=== PATIENT | male | born 1970 | race Hispanic/Latino ===

== ENCOUNTER 2016-12-25 15:53 | Day surgery (SDC) | payer OTHER ==
[~2016-12-25] VITALS: Ht 160 cm; Wt 83.0 kg
[~2016-12-25 15:53] MED LIST: AMOXICILLIN500 MG PO; BACTRIM DS1 TAB PO; CIPROFLOXACN500 MG PO; FISH OIL1200 M1 PO; METRONIDAZOL500 MG PO; MULTI VIT PO; OMEPRAZOLE10 MG PO; OMEPRAZOLE20 M1 PO; PRILOSEC40 MG PO
[2016-12-25 17:11] VITALS: BP 109/65
== END 2016-12-25 17:23 | disposition home or self-care (01) | DRG 392 ==
LOC: ENDO 15:53 → ORM 19:00 → ENDO 19:15
PROVIDERS: ATTEND Internal Medicine Gastroenterology
PROC: 0DB48ZX Excision of Esophagogastric Junction, Via Natural or Artificial Opening Endoscopic, Diagnostic (ICD-10-PCS; principal; 2016-12-25)
PROC: 0DB68ZX Excision of Stomach, Via Natural or Artificial Opening Endoscopic, Diagnostic (ICD-10-PCS; 2016-12-25)
DX: K21.9 Gastro-esophageal reflux disease without esophagitis (principal); K62.5 Hemorrhage of anus and rectum; R10.13 Epigastric pain; R10.12 Left upper quadrant pain; R14.0 Abdominal distension (gaseous); K29.50 Unspecified chronic gastritis without bleeding; Q40.8 Other specified congenital malformations of upper alimentary tract